=== PATIENT | male | born 1940 | race Caucasian/White ===

== ENCOUNTER 2018-01-02 12:01 | Inpatient (IN) | payer BC, MEDICARE ==
[~2018-01-02] VITALS: Ht 182.9 cm; Wt 86.2 kg
[2018-01-02] MEDS ORDERED: ALBUTEROL/IPRATROPIUM 3 ML NEB NEB ONE (13:15)
[2018-01-02 13:23] LABS: BASOPHILS % 0.3 % (0.0-1.0); EOSINOPHILS % 0.6 % (0.0-6.0); HEMATOCRIT 46.2 % (38.2-49.6); HEMOGLOBIN 15.7 g/dL (14.0-18.0); LYMPHOCYTES # (AUTO) 0.6 (1.0-3.2); MEAN CORPUSCULAR HEMOGLOBIN 30.9 pg (28-32); MEAN CORPUSCULAR VOLUME 90.9 fL (81-99); MONOCYTES # (AUTO) 0.5 (0.2-0.8); MONOCYTES % 8.3 % (4.4-11.3); NEUTROPHILS # (AUTO) 5.2 (2.1-6.9); NEUTROPHILS % 80.5 % (38.7-80.0); PLATELET COUNT 121 x10e3/uL (140-360); RED BLOOD COUNT 5.08 x10e6/uL (4.3-5.7); RED CELL DISTRIBUTION WIDTH 12.8 % (11.7-14.4)
[2018-01-02 13:40] LABS: ALANINE AMINOTRANSFERASE 25 IU/L (0-55); ALBUMIN 3.7 g/dL (3.5-5.0); ALKALINE PHOSPHATASE 49 IU/L (40-150); ANION GAP 12.6 mmol/L (8-16); BLOOD UREA NITROGEN 13 mg/dL (7-26); BUN/CREATININE RATIO 16 (6-25); CALCIUM 9.7 mg/dL (8.4-10.2); CARBON DIOXIDE 29 mmol/L (22-29); CHLORIDE 92 mmol/L (98-107); CREATINE KINASE 493 IU/L (30-200); CREATININE, SERUM 0.82 mg/dL (0.72-1.25); EST GLOMERULAR FILTRATION RATE > 60 ML/MIN (60-); GLUCOSE 96 mg/dL (74-118); MAGNESIUM 1.9 MG/DL (1.3-2.1); POTASSIUM 4.6 mmol/L (3.5-5.1); SODIUM 129 mmol/L (136-145)
--- NOTE | 2018-01-02 13:55 | Diagnostic Imaging Report ---
PROCEDURE: Frontal and lateral views of the chest. COMPARISON: None. INDICATIONS: UPPER RESPIRATORY INFECTION FINDINGS: Lines/tubes: None. Lungs: The lungs are well inflated. There are patchy opacities in both lungs, right greater than left. Pleura: There is no pleural effusion or pneumothorax. Heart and mediastinum: Mitral valve prosthesis. Borderline enlargement of cardiac silhouette. Bones: No acute bony abnormality. IMPRESSION: Findings concerning for multifocal pneumonia, worse in the right lung. Dictated by: Gianluca Lawton M.D. on 01/02/2018 at 13:56 Electronically approved by: Gianluca Lawton M.D. on 01/02/2018 at 13:56
[2018-01-02] MEDS ORDERED: METOPROLOL SUCC25 MG PO (15:08)
[2018-01-02] MEDS ORDERED: TAMSULOSIN HCL0.4 MG PO (15:08)
[2018-01-02] MEDS ORDERED: MIRALAX17 GM PO (15:08)
[2018-01-02] MEDS ORDERED: ALIGN4 MG PO (15:08)
[2018-01-02] MEDS ORDERED: OMEGA 3 1,0001 EACH PO (15:08)
[2018-01-02] MEDS ORDERED: PRADAXA150 MG PO (15:08)
[2018-01-02] MEDS ORDERED: VITAMIN D1000 UNI1 PO (15:08)
[2018-01-02] MEDS ORDERED: LEVOTHYROXINE50 MCG PO (15:08)
[2018-01-02] MEDS ORDERED: CEFTRIAXONE SOD 1 GM VIAL IV SCH (15:15)
[2018-01-02] MEDS: AZITHROMYCIN 250 MG TAB PO SCH (15:40)
--- OUTSIDE RECORDS SUMMARY | 2018-01-02 16:00 | XMS REPORT ---
Author Author [facility] Address Unknown Phone Unavailable Care Team Providers Care Utility Specialist Name Role Phone MARYA MARY Unavailable Unavailable Problems This patient has no known problems. Allergies, Adverse Reactions, Alerts This patient has no known allergies or adverse reactions. Medications This patient has no known medications. 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 COMPARISON: None. INDICATIONS: UPPER RESPIRATORY INFECTION FINDINGS: Lines/tubes: None. Lungs: The lungs are well inflated. There are patchy opacities in both lungs, right greater than left. Pleura: There is no pleural effusion or pneumothorax. Heart and mediastinum: Mitral valve prosthesis. Borderline enlargement of cardiac silhouette. Bones: No acute bony abnormality. IMPRESSION: Findings concerning for multifocal pneumonia, worse in the right lung. Dictated by: Gianluca Delgado M.D. on 01/02/2018 at 13:56 Electronically approved by: Gianluca Delgado M.D. on 01/02/2018 at 13:56 Dictated By: GIANLUCA DELGADO MD [id number] Transcribed By: ESTELLA on 01/02/18 1356 COPY TO: MJ BACA NP
--- OUTSIDE RECORDS SUMMARY | 2018-01-02 16:00 | XMS REPORT ---
Author Organization Unknown Address [address] [place] [address] Phone [phone] Care Team Providers Care Educational Specialist Name Role Phone CEFERINO MCCARTY MD 82 [phone] ESTEBAN MCMANUS MD 119 [phone] DIPAK LINDSEY MD 107 [phone] MARY PAUL MD 3 [phone] ALVIN CRUZ 111 [phone] destini goldberg (spouse) 64 [phone] Allergies Code Code System Name Reaction Severity Status Onset 1886 RxNorm Caffeine Active 2670 RxNorm Codeine Active 92030 RxNorm Verapamil Active Medications Name Status Start Date Stop Date amoxicillin 500 mg capsule Completed 08/16/2017 amoxicillin 500 mg tablet Completed 02/10/2017 azithromycin 250 mg tablet TAKE 2 TABLETS (500 MG) BY ORAL ROUTE ONCE DAILY FOR 1 DAY THEN 1 TABLET (250 MG) BY ORAL ROUTE ONCE DAILY FOR 4 DAYS Active Not available benzonatate 200 mg capsule Completed 08/27/2016 cephalexin 500 mg capsule Completed 08/27/2016 cholecalciferol (vitamin D3) 2,000 unit capsule Take 1 capsule every day by oral route. Active Not available digoxin 125 mcg tablet Completed 02/10/2017 digoxin 250 mcg tablet Completed 08/27/2016 fenofibric acid (choline) 135 mg capsule,delayed release Completed 2017 fluticasone 50 mcg/actuation nasal spray,suspension [place] 1 spray twice a day by intranasal route as directed for 14 days. Completed 11/01/2017 L-Thyroxine 1 TAB A DAY Completed 09/07/2016 levocetirizine 5 mg tablet Completed 08/27/2016 levofloxacin 500 mg tablet Completed 04/12/2017 Lovaza 1 gram capsule Active Not available methocarbamol 500 mg tablet Active Not available Miralax 17 gram oral powder packet Take 1 packet every day by oral route. Active Not available Pradaxa 150 mg capsule Active Not available Synthroid 50 mcg tablet Active Not available tamsulosin 0.4 mg capsule Active Not available Toprol XL 25 mg tablet,extended release Active Not available Viagra 100 mg tablet Take 0.5 tablets every day by oral route as needed for 6 days. Active Not available Notes: align probiotic supplement : QD Problems Name Status Onset Date Source Body Mass Index 25-29 - Overweight Active 08/27/2016 Hemorrhoids Active 08/27/2016 Constipation Active 08/27/2016 Abdominal Mass Active 08/27/2016 Atrial Fibrillation Active 12/20/2016 Atherosclerosis of Aorta Active 12/20/2016 Atypical Chest Pain Active 12/20/2016 Electrocardiogram Abnormal Active 12/20/2016 Hypothyroidism Active 12/31/2017 Hypertriglyceridemia Active 12/31/2017 Benign Prostatic Hyperplasia Active 12/31/2017 Procedures Date Name Performed by 04/11/2015 Colonoscopy Notes: repeat in 5 yrs per pt Information not available Nasal Surgery Procedure Notes: Repair Deviated Septum Information not available Tonsillectomy Information not available Revision of Lower Eyelid Notes: Bilaterally Information not available Revision of Upper Eyelid Notes: Bilaterally Information not available Cataract Surgery Complex Notes: Bilaterally Information not available 08/27/2016 US, Abdomen [facility] [address] [place] [address] (Work [address]) 12/20/2016 Electrocardiogram [facility] [address] [place] [phone] (Work Place) Notes: Excision Lipoma RLQ of Abd Excision Right Upper Arm Blood Tumor Mitral Valvuoplasty Lab Results Date Name Specimen Result Interpretation Description Value Range Status Address 04/01/2017 CMP, Serum or Plasma No observation recorded. [facility]: [address], [place] 12/17/2015 Lipid Panel, Serum No observation recorded. [facility] [address], [place] 01/28/2015 Lipid Panel, Serum No observation recorded. [facility] ([facility] [address], [place] Electrocardiogram Rate & Rhythm 69 [facility]: [address] [facility] QRS Duration 100 [facility]: [address] [facility] QT Interval 376 [facility]: [address] [facility] Past Encounters 12/30/2017 Upper Respiratory Infection; Atrial Fibrillation; Hypertriglyceridemia; Hypothyroidism; Atherosclerosis of Aorta Mary Diaz MD: [address] [place] [phone], Ph. 11/01/2017 Acute Low Back Pain; Body Mass Index 25-29 - Overweight; Atrial Fibrillation; Atherosclerosis of Aorta Mary Diaz MD: [address] [place] [phone], Ph. 08/16/2017 Upper Respiratory Infection Charles Moreno MD: [address] [place] [phone], Ph. [phone] 04/12/2017 Advance Directive Discussed with Patient; Body Mass Index 25-29 - Overweight; Constipation; Atrial Fibrillation; Hemorrhoids; Hypertriglyceridemia; Adult Health Examination Mary Paul MD: [address] [place] [phone], Ph. 02/10/2017 Acute Sinusitis; Acute Bronchitis Mary Paul MD: [address] [place] [phone], Ph. 12/20/2016 Acute Sinusitis; Atypical Chest Pain; Atherosclerosis of Aorta; Atrial Fibrillation; Electrocardiogram Abnormal Mary Paul MD: [address] [place] [phone], Ph. 09/07/2016 Constipation; Atherosclerosis of Aorta; Non-alcoholic Fatty Liver; Biliary Sludge; Body Mass Index 25-29 - Overweight Mary Paul MD: [address] [place] [phone], Ph. 08/27/2016 Constipation; Abdominal Mass; Hemorrhoids; Body Mass Index 25-29 - Overweight; Pneumococcal Vaccination Mary Paul MD: [address] [place] [phone], Ph. Social History Smoking Status Never Smoker Vaccine List Vaccine Type influenza, unspecified formulation 05/20/2016 05/20/2017 pneumococcal conjugate PCV 13 08/27/20160.5 mL pneumococcal polysaccharide PPV23 07/27/2013 Tdap 07/27/2013 zoster 09/19/2005 Plan of Care Patient Instructions It was good to see you in the office today for your Medicare Annual Wellness Visit. You have been provided some information on healthy nutrition, including a diet rich in fruits and vegetables, minimizing simple carbohydrates, salt, and saturated fats. I want to encourage regular cardiovascular exercise such as walking at least 30 minutes daily, 5 times per week. Please remember to schedule any preventive health measures that we talked about today. You have also been provided education on fall prevention and community- based lifestyle interventions to help reduce health risks and promote healthy living in your [employer] folder. Screening Recommendations 1. Vaccines Pneumococcal: No further need Influenza: This Fall Shingles: No further need Tetanus: Your next one in:2022 2. Prostate Screening: discussed today and information sent with patient in their [employer] health folder 3. Colorectal cancer Screening Colonoscopy: No screening necessary Fecal Occult Blood: discussed today and information sent with patient in their [employer] health folder 4. Bone Mass Measurement: discussed today 5. Eye Exam Screening: discussed today 6. Cholesterol Screening: discussed today. Followed by Cardiology. 7. Diabetes Screening: discussed today Reminders Provider Appointments None recorded. Lab None recorded. Referral None recorded. Procedures None recorded. Surgeries None recorded. Imaging None recorded. Vitals 12/30/2017 09:00AM Est Patient Height Weight BMI Blood Pressure 6 ft 0.6 in 196 lbs 26.1 kg/m2 122/84 mm[Hg] 11/01/2017 03:30PM Work In Same Day Height Weight BMI Blood Pressure 6 ft 0.6 in 196 lbs 26.1 kg/m2 118/80 mm[Hg] 08/16/2017 08:30AM Est Patient Height Weight BMI Blood Pressure 6 ft 0.6 in 191 lbs 25.5 kg/m2 110/72 mm[Hg] 04/12/2017 07:00AM AWV Height Weight BMI Blood Pressure 6 ft 0.6 in 190 lbs 25.3 kg/m2 116/70 mm[Hg] 02/10/2017 07:45AM Est Patient Height Weight BMI Blood Pressure 6 ft 0.6 in 190 lbs 25.3 kg/m2 118/78 mm[Hg] 12/20/2016 08:15AM Est Patient Height Weight BMI Blood Pressure 6 ft 0.6 in 186 lbs 24.8 kg/m2 101/71 mm[Hg] 09/07/2016 03:30PM Est Patient Height Weight BMI Blood Pressure 5 ft 11.5 in 192 lbs 26.4 kg/m2 103/69 mm[Hg] 08/27/2016 02:00PM Est Patient Height Weight BMI Blood Pressure 5 ft 11.5 in 192 lbs 26.4 kg/m2 119/83 mm[Hg]
[2018-01-02] MEDS ORDERED: ACETAMINOPHEN 325 MG TAB PO PRN (18:45)
[2018-01-02] MEDS ORDERED: ONDANSETRON HCL INJ 2 MG/ML VIAL IV PRN (18:45)
[2018-01-02 18:50] VITALS: BP 136/64
--- NOTE | 2018-01-02 19:09 | History and Physical ---
PRIMARY CARE PHYSICIAN: Dr. Cristo Talbot. CHIEF COMPLAINT: Shortness of breath, cough, wheezing, fever, chills for the last 2 to 3 days. HISTORY OF PRESENT ILLNESS: Mr. Barrera is a 77-year-old male who presented to the emergency room with cough, fever, chills going on for the last 4 to 5 days. He saw his primary care physician, Dr. Diaz, and she gave IV Rocephin and gave him a Z-Schuyler, but patient did not improve and the cough got worse, and since yesterday he was also coughing up a small amount of blood. The chest x-ray in the emergency room is showing bilateral alveolar infiltrate, worse in the right, consistent with multilobar pneumonia. He is denying any complaints of chest pain, nausea, vomiting, diarrhea. REVIEW OF SYSTEMS GENERAL: Fever and chills. HEAD: Denies any head trauma. ENT: Denies any earache. CVS: Denies any chest pain. RESPIRATORY: Shortness of breath and wheezing. GI: Denies any nausea or vomiting. MUSCULOSKELETAL: Denies any arthralgias, myalgias. NEURO: Denies any focal weakness. REMAINDER: The rest of the review of systems are negative except as in the HPI. PAST MEDICAL HISTORY 1. Mitral valve repair. 2. Cataract repair. 3. Hernia surgery. FAMILY AND SOCIAL HISTORY: He lives with his . Does not smoke, does not drink. PHYSICAL EXAMINATION VITAL SIGNS: Temperature 98.4, pulse of 74, blood pressure 125/94, O2 sat 96% on room air. SKIN: Warm and dry. HEENT: Head atraumatic, normocephalic. Pupils are reactive. NECK: Supple. CHEST: Wheezing and rhonchi bilaterally. HEART: S1/S2 audible. No murmurs, gallops or rub. ABDOMEN: Soft, nontender, nondistended. EXTREMITIES: No clubbing, cyanosis or edema. NEUROLOGICALLY: Awake and alert, following commands, no focal neurologic deficit. LABS: White count of 6000, hemoglobin 15.7, platelets 121. Chemistry: Sodium 129, potassium 4.6, chloride 92, BUN 13, creatinine 0.82. CK-MB 5.4, , troponin negative. BNP 147. Total bilirubin 1.3, and AST is 35. CHEST X-RAY: Multilobar pneumonia. ASSESSMENT: Mr. Barrera is a 77-year-old male with shortness of breath and wheezing and cough. Chest x-ray suggestive of multilobar pneumonia. PLAN 1. I will do a CT chest without contrast. 2. Start on IV Zosyn along with azithromycin as patient did not respond to Rocephin. 3. Nebulizer treatment. 4. Pulmicort nebs. 5. Will repeat labs. Patient's CK-MB is high, likely pneumonia. 6. Sputum culture and influenza antigen will be sent as well. Discussed with patient's at bedside in detail. Job#: [id number] EV
[2018-01-02 19:44] VITALS: BP 136/64
[2018-01-02 20:00] VITALS: BP 136/64
[2018-01-02] MEDS: ALBUTEROL/IPRATROPIUM 3 ML NEB NEB SCH (20:29)
[2018-01-02] MEDS: BUDESONIDE 0.5MG/2 ML NEB INH SCH (20:29)
--- NOTE | 2018-01-02 20:48 | Diagnostic Imaging Report ---
EXAM: CT Chest WITHOUT contrast 01/02/2018 6:43 PM INDICATION: Pneumonia, cough COMPARISON: None TECHNIQUE: Chest was scanned utilizing a multidetector helical scanner from the lung apex through the level of the adrenal glands without IV contrast. Coronal and sagittal reformations were obtained. Routine protocol was performed. IV CONTRAST: None RADIATION DOSE: Total DLP: 525.50 mGy*cm Estimated effective dose: (DLP x 0.014 x size factor) mSv COMPLICATIONS: None FINDINGS: LINES/ TUBES: None. LUNGS AND AIRWAYS: There are multifocal, predominantly centrilobular nodular and groundglass opacities. The right lower lobe is the worst affected, but there is also involvement of the upper lobes and left lower lobe superior segment. Diffuse bronchial wall thickening, consistent with acute infectious process. PLEURA: Very small right pleural effusion. No pneumothorax. HEART AND MEDIASTINUM:No mediastinal, hilar or axillary lymphadenopathy. The heart is normal in size. No pericardial effusion. There is a mitral valve prosthesis. The visualized thyroid gland is normal. UPPER ABDOMEN: Small hiatal hernia. BONES: Multilevel thoracic spondylosis. SOFT TISSUES: Unremarkable. IMPRESSION: 1. Multifocal pneumonia as described above, predominantly involving the upper lobes. 2. Recommend serial radiographs to document resolution. Signed by: Dr. Robert Nunez M.D. on 01/02/2018 8:44 PM
[2018-01-02] MEDS: PIPER-TAZ 3.375 GM 50 ML IV SCH ×2 (21:21→22:00)
[2018-01-02] MEDS ORDERED: SODIUM CHLORIDE 0.9% 250ML 250 ML ONE (21:28)
[2018-01-03] VITALS (8 sets, daily range): BP systolic 90–131; BP diastolic 55–80
[2018-01-03] MEDS: ALBUTEROL/IPRATROPIUM 3 ML NEB NEB SCH ×3 (02:36→18:45)
[2018-01-03] MEDS: PIPER-TAZ 3.375 GM 50 ML IV SCH ×3 (05:06→21:21)
[2018-01-03 07:08] LABS: BASOPHILS % 0.2 % (0.0-1.0); EOSINOPHILS # (AUTO) 0.1 (0.0-0.4); EOSINOPHILS % 1.6 % (0.0-6.0); HEMATOCRIT 36.9 % (38.2-49.6); LYMPHOCYTES # (AUTO) 0.7 (1.0-3.2); LYMPHOCYTES % 15.9 % (18.0-39.1); MEAN CORPUSCULAR HEMOGLOBIN 30.9 pg (28-32); MEAN CORPUSCULAR HGB CONC 34.1 g/dL (31-35); MEAN CORPUSCULAR VOLUME 90.4 fL (81-99); MONOCYTES # (AUTO) 0.5 (0.2-0.8); MONOCYTES % 11.4 % (4.4-11.3); NEUTROPHILS % 70.4 % (38.7-80.0); PLATELET COUNT 100 x10e3/uL (140-360); RED BLOOD COUNT 4.08 x10e6/uL (4.3-5.7); RED CELL DISTRIBUTION WIDTH 13.1 % (11.7-14.4)
[2018-01-03 07:18] LABS: ANION GAP 11.5 mmol/L (8-16); BLOOD UREA NITROGEN 12 mg/dL (7-26); BUN/CREATININE RATIO 15 (6-25); CALCIUM 8.6 mg/dL (8.4-10.2); CARBON DIOXIDE 29 mmol/L (22-29); CHLORIDE 95 mmol/L (98-107); CREATININE, SERUM 0.82 mg/dL (0.72-1.25); EST GLOMERULAR FILTRATION RATE > 60 ML/MIN (60-); GLUCOSE 87 mg/dL (74-118); POTASSIUM 4.5 mmol/L (3.5-5.1); SODIUM 131 mmol/L (136-145)
[2018-01-03 07:27] LABS: HEMOGLOBIN 12.6 g/dL (14.0-18.0)
[2018-01-03 07:38] LABS: CREATINE KINASE MB 2.5 ng/mL (0-5.0)
[2018-01-03 10:21] LABS: PLATELET ESTIMATE SLIGHTLY DECREASED
[2018-01-03 10:22] LABS: PLATELET MORPHOLOGY COMMENT FEW LARGE; POIKILOCYTOSIS SLIGHT; RBC MORPHOLOGY COMMENT NORMAL
[2018-01-03] MEDS: AZITHROMYCIN 250 MG TAB PO SCH (14:20)
[2018-01-03] MEDS: BUDESONIDE 0.5MG/2 ML NEB INH SCH (18:45)
[2018-01-04] VITALS (7 sets, daily range): BP systolic 117–171; BP diastolic 62–91
[2018-01-04] MEDS: ALBUTEROL/IPRATROPIUM 3 ML NEB NEB SCH ×4 (00:05→20:25)
[2018-01-04] MEDS: LEVOTHYROXINE SODIUM 50 MCG TAB PO SCH (05:27)
[2018-01-04] MEDS: PIPER-TAZ 3.375 GM 50 ML IV SCH ×3 (05:27→21:56)
[2018-01-04] MEDS: BUDESONIDE 0.5MG/2 ML NEB INH SCH ×2 (07:45→20:25)
[2018-01-04] MEDS: POLYETHYLENE GLYCOL 3350 17 GM PACK PO SCH (09:00)
[2018-01-04] MEDS: ALIGN PO SCH (09:00)
[2018-01-04] MEDS ORDERED: DABIGATRAN ETEXILATE 150 MG CAP PO SCH (09:00)
[2018-01-04] MEDS ORDERED: TAMSULOSIN HCL 0.4 MG CAP PO SCH (09:00)
[2018-01-04] MEDS ORDERED: METOPROLOL SUCCINATE 25 MG TAB XL PO SCH ×2 (09:00→21:00)
[2018-01-04] MEDS ORDERED: CHOLECALCIFEROL 1,000 UNIT TAB PO SCH (09:00)
[2018-01-04] MEDS ORDERED: BIFIDOBACTERIUM INFANTIS 4 MG PO SCH (09:00)
[2018-01-04] MEDS: OMEGA 3 POLYUNSAT FATTY ACIDS 1000 MG SOFTGEL PO SCH (09:58)
[2018-01-04] MEDS: METOPROLOL SUCCINATE 25 MG TAB XL PO SCH ×2 (10:55→17:15)
--- NOTE | 2018-01-04 11:11 | Consultation ---
DATE OF CONSULTATION: January 04, 2018 CARDIOLOGY CONSULTATION Thank you so much for asking me to see this nice man in consultation. Mr. 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 CHIEF COMPLAINT: He was admitted on January 02, 2018, with the complaint of cough, fever and sputum production that was not improved with oral medications and other medications provided by the family doctor, Dr. Bauman. PAST MEDICAL HISTORY: Most significant for previous mitral valve repair by Dr. Cm Trejo in 1999 with surgical restructuring of his own valve. His regular breaker hand is Dr. Santoyo. He admits he does know of atrial fibrillation, but has not known of any other arrhythmia and has not ever had syncope. He had also previous bilateral inguinal hernia repairs, cataract surgeries and will lid lifts. He has had benign tumors removed from his skin twice. PERSONAL/SOCIAL HISTORY: He is a nonsmoker. HOME MEDICATIONS 1. Metoprolol succinate 25 mg daily. 2. Lovaza fish oil daily. 3. Tamsulosin 0.4 mg daily. 4. Levothyroxine 50 mcg daily. 5. Vitamin D. 6. Pradaxa 150 mg twice a day. REVIEW OF SYSTEMS CARDIAC: He denies feeling any palpitations. No edema. He does tell me that after his mitral valve repair he had to have his sternal wires removed for problems with infection. PHYSICAL EXAMINATION GENERAL: Shows a pleasant white man who is alert, oriented and sitting in a chair. VITALS: Blood pressure is 170/90 and pulse is 80 and irregularly irregular. HEENT: Unremarkable. NECK: No jugular venous distention. No bruits. THORAX: A healed sternotomy. HEART: S1 and S2 are equal, but irregularly irregular. This no significant murmur audible. LUNGS: Have faint crackles bilaterally. ABDOMEN: Protuberant. Normal bowel sounds. EXTREMITIES: No cyanosis, clubbing or edema. EKG on the chart shows atrial fibrillation. Telemetry strips show episodes of wide complex tachycardia in addition to the atrial fib that may be ventricular tachycardia or could be aberrant conduction. Pertinent chemistries show a normal troponin is and CK and CK-MB ratio is normal. His initial sodium was 129 and repeat 131. Potassium is normal at 4.5. No magnesium on the chart. His last white cell count was 4.29 and platelets 100,000. Chest x-ray suggests bilateral multilobar infiltrates suggesting pneumonia. ASSESSMENT 1. Pneumonia. 2. Chronic atrial fibrillation. 3. Previous mitral valve repair. 4. Wide complex tachycardia that may be ventricular tachycardia or aberrant conduction. 5. Hyponatremia. PLAN: Recommend we stop Zithromax as it can be proarrhythmic. Will increase his metoprolol despite him telling me he does not have hypertension. His blood pressure was elevated today, and it can help suppress these rhythms. Will check echocardiogram to assess left ventricular function and mitral valve function as his BNP is 147. Will follow him closely with you. Thank you for asking me to see him in consultation. Job#: [id number] GERALDINE
[2018-01-04 12:11] LABS: BASOPHILS % 0.2 % (0.0-1.0); EOSINOPHILS # (AUTO) 0.1 (0.0-0.4); EOSINOPHILS % 1.8 % (0.0-6.0); HEMATOCRIT 37.7 % (38.2-49.6); HEMOGLOBIN 12.8 g/dL (14.0-18.0); LYMPHOCYTES # (AUTO) 0.6 (1.0-3.2); LYMPHOCYTES % 12.6 % (18.0-39.1); MEAN CORPUSCULAR HEMOGLOBIN 30.7 pg (28-32); MEAN CORPUSCULAR VOLUME 90.4 fL (81-99); MONOCYTES # (AUTO) 0.4 (0.2-0.8); MONOCYTES % 9.7 % (4.4-11.3); NEUTROPHILS # (AUTO) 3.3 (2.1-6.9); NEUTROPHILS % 75.5 % (38.7-80.0); PLATELET COUNT 103 x10e3/uL (140-360); RED BLOOD COUNT 4.17 x10e6/uL (4.3-5.7); RED CELL DISTRIBUTION WIDTH 12.9 % (11.7-14.4)
[2018-01-04 12:32] LABS: ALANINE AMINOTRANSFERASE 17 IU/L (0-55); ALBUMIN 2.9 g/dL (3.5-5.0); ALKALINE PHOSPHATASE 41 IU/L (40-150); ANION GAP 10.6 mmol/L (8-16); BLOOD UREA NITROGEN 9 mg/dL (7-26); BUN/CREATININE RATIO 12 (6-25); CALCIUM 8.9 mg/dL (8.4-10.2); CARBON DIOXIDE 30 mmol/L (22-29); CHLORIDE 94 mmol/L (98-107); CREATININE, SERUM 0.77 mg/dL (0.72-1.25); EST GLOMERULAR FILTRATION RATE > 60 ML/MIN (60-); GLUCOSE 82 mg/dL (74-118); MAGNESIUM 1.7 MG/DL (1.3-2.1); POTASSIUM 4.6 mmol/L (3.5-5.1); SODIUM 130 mmol/L (136-145)
[2018-01-04 12:53] LABS: FREE T4 (FREE THYROXINE) 1.21 ng/dL (0.9-1.8)
[2018-01-04] MEDS: TAMSULOSIN HCL 0.4 MG CAP PO SCH (21:19)
[2018-01-04] MEDS: DABIGATRAN ETEXILATE 150 MG CAP PO SCH (21:19)
[2018-01-04] MEDS: CHOLECALCIFEROL 1,000 UNIT TAB PO SCH (21:20)
[2018-01-05] VITALS (9 sets, daily range): BP systolic 104–147; BP diastolic 63–88
[2018-01-05] MEDS: ALBUTEROL/IPRATROPIUM 3 ML NEB NEB SCH ×4 (01:35→20:35)
[2018-01-05] MEDS: LEVOTHYROXINE SODIUM 50 MCG TAB PO SCH (06:25)
[2018-01-05] MEDS: PIPER-TAZ 3.375 GM 50 ML IV SCH ×3 (06:25→20:38)
[2018-01-05 07:10] LABS: BASOPHILS % 0.2 % (0.0-1.0); EOSINOPHILS # (AUTO) 0.2 (0.0-0.4); EOSINOPHILS % 3.8 % (0.0-6.0); HEMATOCRIT 37.8 % (38.2-49.6); HEMOGLOBIN 12.8 g/dL (14.0-18.0); LYMPHOCYTES # (AUTO) 0.9 (1.0-3.2); LYMPHOCYTES % 19.3 % (18.0-39.1); MEAN CORPUSCULAR HEMOGLOBIN 30.6 pg (28-32); MEAN CORPUSCULAR HGB CONC 33.9 g/dL (31-35); MEAN CORPUSCULAR VOLUME 90.4 fL (81-99); MONOCYTES # (AUTO) 0.4 (0.2-0.8); MONOCYTES % 9.4 % (4.4-11.3); NEUTROPHILS % 66.9 % (38.7-80.0); PLATELET COUNT 116 x10e3/uL (140-360); RED BLOOD COUNT 4.18 x10e6/uL (4.3-5.7); RED CELL DISTRIBUTION WIDTH 12.9 % (11.7-14.4)
[2018-01-05] MEDS: BUDESONIDE 0.5MG/2 ML NEB INH SCH ×2 (07:15→20:35)
[2018-01-05 07:30] LABS: ANION GAP 11.4 mmol/L (8-16); BLOOD UREA NITROGEN 10 mg/dL (7-26); BUN/CREATININE RATIO 14 (6-25); CALCIUM 8.9 mg/dL (8.4-10.2); CARBON DIOXIDE 27 mmol/L (22-29); CHLORIDE 97 mmol/L (98-107); CREATININE, SERUM 0.72 mg/dL (0.72-1.25); EST GLOMERULAR FILTRATION RATE > 60 ML/MIN (60-); GLUCOSE 85 mg/dL (74-118); POTASSIUM 4.4 mmol/L (3.5-5.1); SODIUM 131 mmol/L (136-145)
[2018-01-05] MEDS: METOPROLOL SUCCINATE 25 MG TAB XL PO SCH ×2 (08:10→16:50)
[2018-01-05] MEDS: OMEGA 3 POLYUNSAT FATTY ACIDS 1000 MG SOFTGEL PO SCH (08:10)
[2018-01-05] MEDS: DABIGATRAN ETEXILATE 150 MG CAP PO SCH ×2 (08:10→16:50)
[2018-01-05] MEDS: ALIGN PO SCH (09:00)
[2018-01-05] MEDS: POLYETHYLENE GLYCOL 3350 17 GM PACK PO SCH (09:00)
[2018-01-05] MEDS ORDERED: ONDANSETRON HCL 4 MG ORAL DISINTEGRATING TAB PO PRN (12:15)
[2018-01-05] MEDS: TAMSULOSIN HCL 0.4 MG CAP PO SCH (20:38)
[2018-01-05] MEDS: CHOLECALCIFEROL 1,000 UNIT TAB PO SCH (20:38)
[2018-01-06] VITALS: BP 134/74
[2018-01-06] MEDS: ALBUTEROL/IPRATROPIUM 3 ML NEB NEB SCH ×2 (01:45→06:57)
[2018-01-06 04:00] VITALS: BP 124/70
[2018-01-06] MEDS: PIPER-TAZ 3.375 GM 50 ML IV SCH (06:15)
[2018-01-06] MEDS: LEVOTHYROXINE SODIUM 50 MCG TAB PO SCH (06:15)
[2018-01-06] MEDS: BUDESONIDE 0.5MG/2 ML NEB INH SCH (07:00)
[2018-01-06 07:10] VITALS: BP 133/68
[2018-01-06 07:37] VITALS: BP 133/68
[2018-01-06] MEDS: METOPROLOL SUCCINATE 25 MG TAB XL PO SCH (09:00)
[2018-01-06] MEDS: DABIGATRAN ETEXILATE 150 MG CAP PO SCH (09:00)
[2018-01-06] MEDS: OMEGA 3 POLYUNSAT FATTY ACIDS 1000 MG SOFTGEL PO SCH (09:00)
[2018-01-06] MEDS: POLYETHYLENE GLYCOL 3350 17 GM PACK PO SCH (09:00)
[2018-01-06] MEDS: ALIGN PO SCH (09:00)
[2018-01-06] MEDS ORDERED: AUGMENTIN 875-1 EACH PO (10:37)
[2018-01-06 11:29] VITALS: BP 127/62
[2018-01-06] MEDS ORDERED: AUGMENTIN 500-1 EACH PO (11:34)
--- NOTE | 2018-01-06 13:24 | Discharge Summary ---
Patient of Dr. Black, Dr. Simons. Suzette 77-year-old gentleman admitted with cough and fever, found to have bilateral multifocal pneumonia. He had been treated with Zithromax and Rocephin. He has a history of mitral valve repair, cataract surgery, hernia surgery. He is chronically anticoagulated. He was treated with Zosyn and gradually improved. He was seen by Dr. Simons because of what appeared to be atrial fibrillation with aberrancy, history of mitral valve repair in 1999 with reconstruction, history of BPH and hypothyroidism. He is chronically anticoagulated with Pradaxa. Zithromax was acting as a proarrhythmic agent and was responsible for his arrhythmia. It was uncertain whether this was ventricular tachycardia or atrial tachycardia with aberrancy and atrial fibrillation with aberrancy. He was warned to avoid macrolides, specifically azithromycin, Biaxin and erythromycin. He improved and was discharged to be followed by Dr. Simons and Dr. Bauman and Dr. Guillaume. Continue on Augmentin 500 mg b.i.d., metoprolol 25 mg b.i.d., Robitussin 10 mL t.i.d. p.r.n. cough, Pradaxa 150 mg b.i.d., tamsulosin 0.5 mg nightly, vitamin D, Levoxyl 50 mcg daily. RADHA GAITAN MD Job#: [id number]
== END 2018-01-06 12:23 | disposition home or self-care (01) | DRG 194 ==
LOC: ER 12:01 → ERHOLD 15:57 → MED/SURG3 17:49
PROVIDERS: ADMIT Internal Medicine; ATTEND Internal Medicine
DX: J18.9 Pneumonia, unspecified organism (principal); R04.2 Hemoptysis; I47.2 Ventricular tachycardia; E87.1 Hypo-osmolality and hyponatremia; I48.2 Chronic atrial fibrillation; N40.0 Benign prostatic hyperplasia without lower urinary tract symptoms; E03.9 Hypothyroidism, unspecified; I49.3 Ventricular premature depolarization; Z79.02 Long term (current) use of antithrombotics/antiplatelets
CPT/HCPCS: 36415; 71046; 71250; 80048; 80053; 82550; 82553; 83735; 83880; 84439; 84443; 84484; 85025; 87040; 87070; 87205; 87400; 93005; 93306; 94640; 99284; J0696; J2543; J7050

== ENCOUNTER 2019-01-12 06:54 | Outpatient (RCR) | payer BC, MEDICARE ==
[~2019-01-12 06:54] MED LIST: ALIGN4 MG PO; AUGMENTIN 500-1 EACH PO; AUGMENTIN 875-1 EACH PO; LEVOTHYROXINE50 MCG PO; METOPROLOL SUCC25 MG PO; MIRALAX17 GM PO; OMEGA 3 1,0001 EACH PO; PRADAXA150 MG PO; TAMSULOSIN HCL0.4 MG PO; VITAMIN D1000 UNI1 PO
== END 2019-01-16 ==
LOC: PT 06:54
PROVIDERS: ATTEND Internal Medicine
DX: S13.4XXD Sprain of ligaments of cervical spine, subsequent encounter (principal); M62.830 Muscle spasm of back; M53.82 Other specified dorsopathies, cervical region; M62.81 Muscle weakness (generalized)
CPT/HCPCS: 97139

== ENCOUNTER 2019-01-19 07:29 | Outpatient (RCR) | payer BC, MEDICARE ==
[2019-01-21] MEDS ORDERED: ELIQUIS PO (17:57)
[2019-01-25] MEDS ORDERED: LEVOFLOXACIN500 MG PO (13:01)
[2019-01-25] MEDS ORDERED: MUCINEX DM ER1 EACH PO (13:01)
[2019-01-25] MEDS ORDERED: PROAIR HFA INH8.5 GM IH (13:01)
== END 2019-02-16 ==
LOC: PT 07:29
PROVIDERS: ATTEND Internal Medicine
DX: S13.4XXD Sprain of ligaments of cervical spine, subsequent encounter (principal); M62.830 Muscle spasm of back; M62.81 Muscle weakness (generalized); M53.82 Other specified dorsopathies, cervical region

== ENCOUNTER 2019-01-21 12:29 | Inpatient (IN) | payer BC, MEDICARE ==
[~2019-01-21] VITALS: Ht 182.9 cm; Wt 92.3 kg
--- OUTSIDE RECORDS SUMMARY | 2019-01-21 12:31 | XMS REPORT ---
Author Organization Unknown Address [address] [place] [address] Phone [phone] Care Team Providers Care Bid Clerk Name Role Phone CEFERINO MCCARTY MD 82 [phone] ESTEBAN MCMANUS MD 119 [phone] DIPAK LINDSEY MD 107 [phone] MARY PAUL MD 3 [phone] ALVIN CRUZ 111 [phone] destini goldberg (spouse) 62 [phone] Allergies Code Code System Name Reaction Severity Status Onset 1886 RxNorm Caffeine Active 2670 RxNorm Codeine Active 72912 RxNorm Verapamil Active Medications Name Status Start [...] acid (choline) 135 mg capsule,delayed release Completed 11/01/2017 fluticasone 50 mcg/actuation nasal spray,suspension [place] 1 spray twice a day by intranasal [...] Bilaterally Information not available 08/27/2016 US, Abdomen [facility] [address] [place] [address] (Work [address]) 12/20/2016 Electrocardiogram [facility] [address] [place] [phone] (Work Place) Notes: Excision Lipoma RLQ of Abd Excision Right Upper Arm Blood Tumor Mitral Valvuoplasty Lab Results Date Name Specimen Result Interpretation Description Value Range Status Address 04/01/2017 CMP, Serum or Plasma No observation recorded. [facility] [facility]: [address], [place] 12/17/2015 Lipid Panel, Serum No observation recorded. [facility] [address], [place] 01/28/2015 Lipid Panel, Serum No observation recorded. [facility] [address], [place] Electrocardiogram Rate & Rhythm 69 [facility]: [address] [facility] QRS Duration 100 [facility]: [address] [facility] QT Interval 376 [facility]: [address] [facility] Past Encounters 12/30/2017 Upper Respiratory Infection; Atrial Fibrillation; Hypertriglyceridemia; Hypothyroidism; Atherosclerosis of Aorta Mary Diaz MD: [address] [place] [phone], Ph. 11/01/2017 Acute Low Back Pain; Body Mass Index 25-29 - Overweight; Atrial Fibrillation; Atherosclerosis of Aorta Mary Diaz MD: [address] [place] [phone], Ph. 08/16/2017 Upper Respiratory Infection Charles Moreno MD: [address] [place] [phone], Ph. 04/12/2017 Advance Directive Discussed with Patient; Body Mass Index 25-29 - Overweight; Constipation; Atrial Fibrillation; Hemorrhoids; Hypertriglyceridemia; Adult Health Examination Mary Paul MD: [address] [place] [phone], Ph. 02/10/2017 Acute Sinusitis; Acute Bronchitis Mary Paul MD: [address] [place] [phone], Ph. 12/20/2016 Acute Sinusitis; Atypical Chest Pain; Atherosclerosis of Aorta; Atrial Fibrillation; Electrocardiogram Abnormal Mary Paul MD: [address] [place] [phone], Ph. 09/07/2016 Constipation; Atherosclerosis of Aorta; Non-alcoholic Fatty Liver; Biliary Sludge; Body Mass Index 25-29 - Overweight Mary Paul MD: [address] [place] [phone], Ph. 08/27/2016 Constipation; Abdominal Mass; Hemorrhoids; Body Mass Index 25-29 - Overweight; Pneumococcal Vaccination Mary Paul MD: [address] [place] [phone], Ph. Social History Smoking Status Never Smoker [...] risks and promote healthy living in your [employer] folder. Screening Recommendations 1. Vaccines Pneumococcal: No further need Influenza: This Fall Shingles: No further need Tetanus: Your next one in:2022 2. Prostate Screening: discussed today and information sent with patient in their [employer] health folder 3. Colorectal cancer Screening Colonoscopy: No screening necessary Fecal Occult Blood: discussed today and information sent with patient in their [employer] health folder 4. Bone Mass Measurement: discussed [...]
[2019-01-21] MEDS ORDERED: SODIUM CHLORIDE 0.9% 1000ML 1,000 ML IV STA ×2 (12:41→13:36)
[2019-01-21] MEDS ORDERED: AZITHROMYCIN 500MG/NS 250 ML 250 ML IV SCH (12:45)
[2019-01-21 13:13] LABS: BASOPHILS % 0.2 % (0.0-1.0); EOSINOPHILS % 0.3 % (0.0-6.0); HEMATOCRIT 46.9 % (38.2-49.6); HEMOGLOBIN 15.9 g/dL (14.0-18.0); LYMPHOCYTES # (AUTO) 0.5 (1.0-3.2); LYMPHOCYTES % 3.4 % (18.0-39.1); MEAN CORPUSCULAR HEMOGLOBIN 31.5 pg (28-32); MEAN CORPUSCULAR HGB CONC 33.9 g/dL (31-35); MEAN CORPUSCULAR VOLUME 92.9 fL (81-99); MONOCYTES # (AUTO) 0.6 (0.2-0.8); MONOCYTES % 4.6 % (4.4-11.3); NEUTROPHILS # (AUTO) 12.7 (2.1-6.9); NEUTROPHILS % 91.1 % (38.7-80.0); PLATELET COUNT 132 x10e3/uL (140-360); RED BLOOD COUNT 5.05 x10e6/uL (4.3-5.7)
[2019-01-21 13:20] LABS: CLARITY,URINE HAZY (CLEAR); COLOR,URINE YELLOW (YELLOW); KETONES,URINE NEGATIVE (NEGATIVE); LEUKOCYTE ESTERASE ,URINE NEGATIVE (NEGATIVE); NITRITE,URINE NEGATIVE (NEGATIVE); PROTEIN,URINE DIPSTICK NEGATIVE (NEGATIVE); URINE UROBILINOGEN 0.2 mg/dL (0.2 - 1)
[2019-01-21 13:20] LABS: INR 0.96; PROTHROMBIN TIME 13.3 seconds (11.9-14.5)
[2019-01-21 13:21] LABS: PARTIAL THROMBOPLASTIN TIME 42.7 seconds (23.8-35.5)
[2019-01-21 13:21] LABS: BACTERIA,URINE MODERATE /HPF; BILIRUBIN,URINE NEGATIVE (NEGATIVE); EPITHELIAL CELLS,URINE FEW /LPF; WBC,URINE (MAN) 0-5 /HPF (0-5)
[2019-01-21 13:32] LABS: ALANINE AMINOTRANSFERASE 29 IU/L (0-55); ALBUMIN/GLOBULIN RATIO 1.3 (0.8-2.0); ALKALINE PHOSPHATASE 62 IU/L (40-150); ANION GAP 14.4 mmol/L (8-16); BLOOD UREA NITROGEN 14 mg/dL (7-26); BUN/CREATININE RATIO 16 (6-25); CARBON DIOXIDE 27 mmol/L (22-29); CHLORIDE 99 mmol/L (98-107); CREATINE KINASE 168 IU/L (30-200); CREATININE, SERUM 0.87 mg/dL (0.72-1.25); EST GLOMERULAR FILTRATION RATE > 60 ML/MIN (60-); GLUCOSE 134 mg/dL (74-118); MAGNESIUM 1.8 MG/DL (1.3-2.1); POTASSIUM 4.4 mmol/L (3.5-5.1); SODIUM 136 mmol/L (136-145)
--- NOTE | 2019-01-21 13:42 | Diagnostic Imaging Report ---
EXAMINATION: PA and lateral views of the chest. COMPARISON: CT chest 01/02/2018 CLINICAL HISTORY: Cough, congestion and fever for 2 days, history of pneumonia DISCUSSION: Lines/tubes: None. Lungs: The lungs are well inflated. Linear opacities projecting in the region of the left costophrenic sulcus on the frontal view likely represents subsegmental atelectasis. There is patchy airspace opacity in the right infrahilar region, predominantly seen in the lateral view. There is no evidence of pulmonary edema. Pleura: There is no pleural effusion or pneumothorax. Heart and mediastinum: Cardiac silhouette is unremarkable. Pulmonary vasculature is normal. Bones and soft tissues: No acute bony abnormalities. Mild degenerative changes in the thoracic spine IMPRESSION: Findings in the right infrahilar region suggestive of pneumonia, in the appropriate clinical setting. Signed by: Dr. Slava Kevin M.D. on 01/21/2019 1:39 PM
[2019-01-21] MEDS: CEFTRIAXONE SOD 1 GM/NS 50 ML 50 ML IV SCH (13:47)
[2019-01-21] MEDS: LEVOFLOXACIN 500MG/D5W 100ML 100 ML IV SCH (14:57)
[2019-01-21] MEDS: SODIUM CHLORIDE 0.9% 1000ML 1,000 ML IV SCH (14:57)
[2019-01-21] MEDS ORDERED: ACETAMINOPHEN 325 MG TAB PO PRN (15:15)
[2019-01-21] MEDS: IPRATROPIUM BROMIDE 0.02% 2.5 ML NEB NEB SCH ×3 (15:20→23:45)
[2019-01-21] MEDS: ALBUTEROL SULF 0.083% NEB SOLN 3 ML NEB NEB SCH ×3 (15:20→23:45)
[2019-01-21 16:08] VITALS: BP 106/62
[2019-01-21 16:09] VITALS: BP 106/62
--- NOTE | 2019-01-21 16:20 | NUR ---
PT ADMITTED BY CHARGE NURSE. REC'D PT IN SEMI-FOWLERS POSITION. PT ON RA WITH NO S/S OF DISTRESS. PLACED ON SEMI-FOWLERS POSITION, SIDE RAILS UP X2, BED IN LOWEST POSITION, AND CALL COHN WITHIN REACH. PT HAVE COUGH.
[2019-01-21 16:55] VITALS: BP 106/62
[2019-01-21] MEDS ORDERED: ELIQUIS PO (17:57)
--- NOTE | 2019-01-21 18:55 | NUR ---
PT RECEIVING BREATHING TX. NO S/S OF DISTRESS. AT BEDSIDE. CALL COHN WITHIN REACH, SIDE RAILS UP X2, AND BED IN LOWEST POSITION.
--- NOTE | 2019-01-21 19:29 | NUR ---
Received change of shift report from AM nurse. Walking rounds completed.
[2019-01-21 20:00] VITALS: BP 96/51
--- NOTE | 2019-01-21 23:40 | NUR ---
Patient resting quitly at this time. Continue monitor.
[2019-01-22] VITALS (8 sets, daily range): BP systolic 89–112; BP diastolic 56–67
[2019-01-22] MEDS: SODIUM CHLORIDE 0.9% 1000ML 1,000 ML IV SCH ×2 (03:35→22:00)
[2019-01-22] MEDS: ALBUTEROL SULF 0.083% NEB SOLN 3 ML NEB NEB SCH ×5 (04:00→19:25)
[2019-01-22 06:26] LABS: CREATINE KINASE 153 IU/L (30-200)
[2019-01-22] MEDS: IPRATROPIUM BROMIDE 0.02% 2.5 ML NEB NEB SCH ×3 (06:45→19:25)
--- NOTE | 2019-01-22 07:30 | NUR ---
PT UP IN BED ,O2 2LNC IN PLACE,SHABANA MCARTHUR.
[2019-01-22] MEDS: LEVOFLOXACIN 500MG/D5W 100ML 100 ML IV SCH (09:00)
--- NOTE | 2019-01-22 10:18 | NUR ---
SPOKE WITH DR HINOJOSA NO NEW ORDERS
[2019-01-22] MEDS: CEFTRIAXONE SOD 1 GM/NS 50 ML 50 ML IV SCH (12:45)
--- NOTE | 2019-01-22 14:52 | NUR ---
Nutrition Screen Note RD Recommendation for Physician: -Continue current diet. Plan of Care: RD following, monitoring for tolerance and adequacy Nutrition reason for involvement: Nutrition Risk Trigger-MST 2 Primary Diagnose(s): PNA PMH: Hypertension A-Fib Hypothyroidism CAD Ht: 72 in Wt: 199 lb BMI: 26 kg/m2 IBW: [address] Assessment: (01/22) 78 YOM admitted for PNA. Pt stated that his intake has been decreased for the past couple of days d/t PNA. Pt denied any weight loss. Pt stated he was able to tolerate breakfast today, 01/22. Pt denied N/V/chewing or swallowing issues. Pt has chronic constipation and stated he is on a stool softener at home. LBM: 01/22. Pt had no other questions or concerns. Chart reviewed. Labs and meds reviewed. Will continue to monitor. Current Diet: cardiac Malnutrition Evaluation (01/22) The patient does not meet criteria for a specified degree of malnutrition at this time. Will re-evaluate at follow-up as appropriate. Diet Education Needs Assessment: Diet education not indicated. Nutrition Care Level: low Signed: Angélica Garza, RD, LD
[2019-01-22 15:39] LABS: CREATINE KINASE 209 IU/L (30-200)
[2019-01-22] MEDS: CHOLECALCIFEROL 1,000 UNIT TAB PO SCH (17:00)
[2019-01-22] MEDS ORDERED: NON-FORMULARY MEDICATION ([Eliquis] 5 MG) PO SCH (17:00)
--- NOTE | 2019-01-22 17:17 | History and Physical ---
CHIEF COMPLAINT: Cough and congestion. HISTORY OF PRESENT ILLNESS: A 78-year-old male patient with history of atrial fibrillation, follows with Dr. Zaldivar, came to the emergency room with cough and congestion. The patient's chest x-ray showed patchy airspace opacity right infrahilar region, predominantly seen in the lateral view. No evidence of pulmonary edema. The patient admitted for pneumonia. PAST MEDICAL HISTORY: Atrial fibrillation, hypertension, osteoarthritis, coronary artery disease, constipation, and BPH. PAST SURGICAL HISTORY: Inguinal hernia repair, left eyelid surgery, mitral valve repair. SOCIAL HISTORY: No history of smoking or alcohol use. MEDICATIONS: Levothyroxine 50 mcg daily, polyethylene glycol, metoprolol succinate 25 mg twice daily, [place]-3 fatty acids, Pradaxa 300 mg twice a day, tamsulosin 0.4 mg daily, Cholecalciferol, and Augmentin. PHYSICAL EXAMINATION: VITAL SIGNS: Blood pressure is 120/77, pulse of 104, temperature 100.8, weight 190 pounds, height 6 feet 1 inch. HEENT: Normal. NECK: No JVD. LUNGS: Bilateral rhonchi present, worse on the right side. ABDOMEN: Soft. Bowel sounds normal. CVS: S1 and S2, regular. EXTREMITIES: Lower extremities, no edema. SKIN: Normal. LABORATORY DATA: CBC; white blood count 13.98. Chemistry; cardiac enzyme normal. BNP 162, BUN 14, creatinine 0.87. ASSESSMENT: Cough, congestion with right lower lobe pneumonia. PLAN: We will continue IV antibiotics. Resume home medications. Breathing treatment, oxygen and DC plan when stable. MD ILANA Smith/MODL /[id number]
[2019-01-22] MEDS: APIXABAN 5 MG TABLET PO SCH (17:25)
[2019-01-22] MEDS: METOPROLOL SUCCINATE 25 MG TAB XL PO SCH (17:26)
[2019-01-22] MEDS: OMEGA 3 POLYUNSAT FATTY ACIDS 1000 MG SOFTGEL PO SCH (17:26)
--- NOTE | 2019-01-22 17:27 | NUR ---
PT UP IN BED NO DISTRESS NTOED,DENIES PAIN ,O2 3L NC
--- NOTE | 2019-01-22 19:05 | NUR ---
Bedside rounds completed with morning nurse. Pt alert and orient to name. Coming from bathroom with IV pole. Denies pain at this time. Call rivas within reach. Bed low and locked. Will continue to monitor.
[2019-01-22] MEDS: TAMSULOSIN HCL 0.4 MG CAP PO SCH (21:00)
[2019-01-23] VITALS (8 sets, daily range): BP systolic 115–138; BP diastolic 62–83
[2019-01-23] MEDS: ALBUTEROL SULF 0.083% NEB SOLN 3 ML NEB NEB SCH ×7 (00:05→20:11)
[2019-01-23] MEDS: IPRATROPIUM BROMIDE 0.02% 2.5 ML NEB NEB SCH ×4 (00:05→20:11)
--- NOTE | 2019-01-23 02:00 | NUR ---
Bedside rounds completed with Dr. Savage. Discussed treatment plan with Pt. Pt verbalized understanding. Dr. Savage ordered morning CXR, Solu-Medrol, and multiple morning lab work. Call rivas within reach.
--- NOTE | 2019-01-23 05:15 | Consultation ---
DATE OF CONSULTATION: 01/22/2019 Pulmonary Medicine Consult PRIMARY CARE DOCTOR: Oj Zaldivar MD CHIEF COMPLAINT: Pneumonia. HISTORY OF PRESENT ILLNESS: Mr. Barrera is a [facility] 78-year-old gentleman with pneumonia. The patient was reporting recent cough. He was having some subjective fevers. He had some chest congestion. The patient went onset of symptoms for about four days. The patient came to the emergency room. In the emergency room, the patient had a chest x-ray consistent with pneumonia. Chest x-ray with mild right pneumonitis. The patient denies history of asthma. He has allergies and many allergies as tested by branch specialist. No previous COPD diagnosed. He has no significant GERD. He is on no chronic pulmonary inhalers. He has never been on home oxygen. He had an 12/2017, CT chest with bilateral nodular consolidative pneumonia. PAST MEDICAL HISTORY: Hypertension, atrial fibrillation, hypothyroidism, BPH, coronary artery disease, constipation, eyelid surgery, chronic allergies, mitral valve repair, cataract repair, hernia surgery. ALLERGIES: VERAPAMIL, CODEINE STATED. SOCIAL HISTORY: No smoking. No drinking. No drugs. 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 Never had any high-level exposures. FAMILY HISTORY: Noncontributory to this. REVIEW OF SYSTEMS: CONSTITUTIONAL: The patient generally without weight changes. OPHTHALMOLOGIC: No double vision. ENT: No mouth ulcers. ENDOCRINE: Diabetes cited. PULMONARY: No hemoptysis. CARDIAC: No recent CA. GI: No constipation. : No blood in urine. MUSCULOSKELETAL: There is mild arthritis only. DERMATOLOGIC: No rashes. NEUROLOGIC: No seizures. OBJECTIVE: VITAL SIGNS: Afebrile, vital signs noted and reviewed per the chart record. GENERAL: In no acute distress, alert and calm. HEENT: Normocephalic, atraumatic. NECK: Supple. Throat midline. LUNGS: Bilateral air entry, a few rhonchi, mild wheezing. CARDIOVASCULAR: S1, S2. No murmurs, rubs, or gallops. ABDOMEN: Soft, nontender. EXTREMITIES: No clubbing. No cyanosis. There is no edema. INTEGUMENT: No rash. No purpura. LABORATORY DATA: Labs reviewed per the chart record. 14 white count, 47 hematocrit, 132 platelets. 4.4 potassium, 14 BUN, 0.9 creatinine. BNP . Albumin is 4.0. Total protein 7.1. Total bilirubin is 2.8. Influenza assay negative. IMPRESSION AND PLAN: 1. Pneumonia, acute, treat for community-acquired pneumonia. 2. History of previous pneumonia. 3. Chronic intermittent allergies. 4. History of constipation. 5. History of thyroid disorder. 6. Atrial fibrillation. 7. Hypertension. 8. Coronary artery disease. Continue oxygen supplementation. I agree with antibiotics for pneumonia. The patient will get labs sent off to check for immunocompetency as part of screening. The patient in the meantime will get CAT scan and I will discuss timing with team. Thank you very much, Dr. Zaldivar and Dr. Guerra for allowing me a chance to participate in the care of Mr. Barrera. Do not hesitate to contact me if I can help in any way. MD PJ Hernandez/DAMIAN /[id number]
[2019-01-23] MEDS ORDERED: LEVOTHYROXINE SODIUM 50 MCG TAB PO SCH (06:00)
[2019-01-23 06:16] LABS: BASOPHILS % 0.2 % (0.0-1.0); EOSINOPHILS # (AUTO) 0.1 (0.0-0.4); EOSINOPHILS % 1.9 % (0.0-6.0); HEMATOCRIT 37.1 % (38.2-49.6); HEMOGLOBIN 12.4 g/dL (14.0-18.0); LYMPHOCYTES # (AUTO) 0.5 (1.0-3.2); LYMPHOCYTES % 8.3 % (18.0-39.1); MEAN CORPUSCULAR HEMOGLOBIN 31.3 pg (28-32); MEAN CORPUSCULAR HGB CONC 33.4 g/dL (31-35); MEAN CORPUSCULAR VOLUME 93.7 fL (81-99); MONOCYTES # (AUTO) 0.5 (0.2-0.8); MONOCYTES % 9.6 % (4.4-11.3); NEUTROPHILS # (AUTO) 4.3 (2.1-6.9); NEUTROPHILS % 79.6 % (38.7-80.0); PLATELET COUNT 99 x10e3/uL (140-360); RED BLOOD COUNT 3.96 x10e6/uL (4.3-5.7); RED CELL DISTRIBUTION WIDTH 13.4 % (11.7-14.4)
[2019-01-23] MEDS: LEVOTHYROXINE SODIUM 50 MCG TAB PO SCH (06:30)
--- NOTE | 2019-01-23 06:40 | NUR ---
Pt resting quietly in bed lying supine HOB 60 degrees side. Denies pain at this time. No distress noted. Call rivas within reach.
--- NOTE | 2019-01-23 07:25 | NUR ---
PT UP IN BED DENIES PAIN ,O2 2L NC IN PLACE,NO DISTRES NTOED
--- NOTE | 2019-01-23 07:31 | Diagnostic Imaging Report ---
A single frontal view of the chest. HISTORY: pneumonia COMPARISON: Chest radiograph January 21, 2019 DISCUSSION: Portable technique, limits sensitivity of the exam. Soft tissue attenuation partially limits sensitivity of the exam. Tubes/Lines: None Lungs and pleura: Diffusely increased interstitial and patchy airspace opacities. Mild left basilar and right infrahilar atelectasis. Mild blunting of the left costophrenic angle. Heart and mediastinum: The cardiac silhouette and central pulmonary vasculature are enlarged. Bones and soft tissues: Appear unremarkable, given this limited exam. IMPRESSION: 1. Findings are most suggestive of volume overload resulting in central pulmonary vascular congestion and moderate pulmonary edema. 2. Multifocal pneumonia is a consideration in the appropriate setting. 3. Mild left basilar atelectasis and trace left effusion. Signed by: Dr. Franklyn Win D.O., M.M.M. on 01/23/2019 7:28 AM
[2019-01-23] MEDS: APIXABAN 5 MG TABLET PO SCH ×2 (08:43→17:37)
[2019-01-23] MEDS: LEVOFLOXACIN 500MG/D5W 100ML 100 ML IV SCH (08:43)
[2019-01-23] MEDS: METHYLPREDNISOLONE SOD SUCC 125 MG/2ML VIAL IV SCH ×2 (08:43→20:43)
[2019-01-23] MEDS: OMEGA 3 POLYUNSAT FATTY ACIDS 1000 MG SOFTGEL PO SCH ×2 (08:44→17:37)
[2019-01-23] MEDS: CHOLECALCIFEROL 1,000 UNIT TAB PO SCH (08:44)
[2019-01-23 11:33] LABS: EOSINOPHILS % (MANUAL) 4 % (0-7); LYMPHOCYTES % (MANUAL) 6 % (19-48); MONOCYTES % (MANUAL) 12 % (3.4-9.0); NEUTROPHILS % (MANUAL) 78 % (40-74); PLATELET ESTIMATE SLIGHTLY DECREASED; RBC MORPHOLOGY COMMENT NORMAL
[2019-01-23 11:34] LABS: PLATELET MORPHOLOGY COMMENT NORMAL
--- NOTE | 2019-01-23 12:30 | NUR ---
PT UP IN ROOM AMBULATING ,DENIES SOB,
[2019-01-23] MEDS: CEFTRIAXONE SOD 1 GM/NS 50 ML 50 ML IV SCH (12:45)
[2019-01-23] MEDS: SODIUM CHLORIDE 0.9% 1000ML 1,000 ML IV SCH (14:00)
--- NOTE | 2019-01-23 14:41 | Diagnostic Imaging Report ---
EXAM: CT Chest WITH contrast INDICATION: Recurrent pneumonia, streaky hemoptysis. COMPARISON: CT chest without contrast 01/02/2018, chest radiograph 01/23/2019. TECHNIQUE: Chest was scanned utilizing a multidetector helical scanner from the lung apex through the level of the adrenal glands after administration of IV contrast. Coronal and sagittal reformations were obtained. Routine protocol was performed. IV CONTRAST: 100 mL of Isovue 370 RADIATION DOSE: Total DLP: 482.7 mGy*cm Dose modulation, iterative reconstruction, and/or weight based adjustment of the mA/kV was utilized to reduce the radiation dose to as low as reasonably achievable. COMPLICATIONS: None FINDINGS: LINES/ TUBES: None. LUNGS AND AIRWAYS: The central airways are patent. There is diffuse bronchial wall thickening, most pronounced in the bilateral lower lobes. There are multifocal groundglass opacities, most confluent in the bilateral lower lobes and to a lesser extent in the dependent bilateral upper lobes. Patchy consolidative opacity in the bilateral lower lobes. Mild interlobular septal thickening in the lower lobes. Diffuse opacity limits evaluation for pulmonary nodule. Bilateral lower lobe calcified granulomas. Biapical pleural-parenchymal opacity, consistent with prior granulomatous disease. PLEURA: Trace left greater than right pleural effusions. HEART AND MEDIASTINUM: The thyroid gland is normal. Mildly enlarged mediastinal lymph nodes, for example a left paratracheal lymph node measuring up to 1.2 cm on series 2, image 49, likely reactive. Scattered partially calcified mediastinal lymph nodes, representing sequela of granulomatous disease. Mild cardiomegaly. No evidence of pericardial effusion. Status post mitral valve replacement. Minimal coronary atherosclerosis. Scattered atherosclerotic calcifications of the thoracic aorta and branch vessels. UPPER ABDOMEN: Limited contrast-enhanced views of the upper abdomen. Small hiatal hernia. Partially seen cyst within the right hepatic lobe. BONES/SOFT TISSUES: Degenerative changes of the visualized spine. No suspicious lytic or blastic lesions. No acute osseous abnormality. IMPRESSION: Findings of multifocal pneumonia, with likely superimposed mild pulmonary interstitial edema in the lower lobes. Trace left greater than right pleural effusions. Recommend follow-up chest CT in 3 months to assess for resolution. Signed by: Dr. Reshma Harris MD on 01/23/2019 2:38 PM
[2019-01-23] MEDS ORDERED: SODIUM CHLORIDE 0.9% 50ML 50 ML ONE (15:09)
[2019-01-23] MEDS ORDERED: IOPAMIDOL 370 MG/ML 200 ML INFUS..BTL INJ ONE (15:09)
--- NOTE | 2019-01-23 16:06 | Progress Note ---
DATE: 01/23/2019 Pulmonary Medicine Progress Note SUBJECTIVE: Mr. Barrera was seen and examined at bedside. He continues to have some coughing. He is expectorating more. The patient is having a few streaks of blood coming out. One bowel movement yesterday. 96% saturation on room air. REVIEW OF SYSTEMS: No double vision, no headaches. OBJECTIVE: VITAL SIGNS: Afebrile, vital signs noted and reviewed per the chart record. GENERAL: In no acute distress, alert and calm. HEENT: Normocephalic, atraumatic. NECK: Supple. Throat midline. LUNGS: Bilateral air entry, mild rhonchi heard. CARDIOVASCULAR: S1, S2. No murmurs, rubs, or gallops. ABDOMEN: Soft, nontender. EXTREMITIES: No clubbing. No cyanosis. There is no large edema. INTEGUMENT: No rash or purpura. IMPRESSION AND PLAN: 1. Pneumonia. 2. Recent other pneumonia. 3. History of chronic allergies. 4. Denies gastroesophageal reflux disease, denies asthma, denies chronic obstructive pulmonary disease. 5. Atrial fibrillation, on blood thinners. Get a CT chest with contrast. While this is more likely infectious pneumonia given the secretions and the subjective fevers, we cannot rule out conditions of his alveolar hemorrhage. If this appears to be chronic pneumonia, we tentatively can consider bronchoscopy as early as tomorrow. We will continue antibiotics at this time. Wean steroids down. A couple of doses were given for the bronchitic component. Continue bronchodilators. MD PJ Hernandez/DAMIAN /[id number]
[2019-01-23] MEDS: METOPROLOL SUCCINATE 25 MG TAB XL PO SCH (17:00)
--- NOTE | 2019-01-23 18:17 | NUR ---
PT UP IN BED DENIES PAIN ,
--- NOTE | 2019-01-23 19:30 | NUR ---
Received patient in report. Patient resting in bed at this time. A&Ox3. Lung sounds clear. Bowel sounds active. Skin in tact. No edema noted. No pain reported. NO S&S of distress at this time. R AC 20g IV asymptomatic, intact, and patent. Bed locked in lowest position, side rails up x2, call light in reach.
[2019-01-23] MEDS: TAMSULOSIN HCL 0.4 MG CAP PO SCH (20:43)
--- NOTE | 2019-01-23 23:20 | NUR ---
Patient ambulating up and down hallway at this time. Gait noted to be steady.
[2019-01-24] VITALS (8 sets, daily range): BP systolic 110–131; BP diastolic 59–85
[2019-01-24] MEDS: IPRATROPIUM BROMIDE 0.02% 2.5 ML NEB NEB SCH ×4 (00:24→20:26)
[2019-01-24] MEDS: ALBUTEROL SULF 0.083% NEB SOLN 3 ML NEB NEB SCH ×6 (00:45→20:26)
[2019-01-24] MEDS: SODIUM CHLORIDE 0.9% 1000ML 1,000 ML IV SCH ×2 (04:21→22:15)
[2019-01-24] MEDS: LEVOTHYROXINE SODIUM 50 MCG TAB PO SCH (05:46)
--- NOTE | 2019-01-24 07:14 | NUR ---
PATIENT IN BED RESTING WITH NO RESPIRATORY DISTRESS. IV FLUID INFUSING ORDERED. DENIED PAIN AT THIS TIME. BED IN LOWER POSITION, CALL LIGHT AT REACH.
[2019-01-24] MEDS: LEVOFLOXACIN 500MG/D5W 100ML 100 ML IV SCH (09:06)
[2019-01-24] MEDS: OMEGA 3 POLYUNSAT FATTY ACIDS 1000 MG SOFTGEL PO SCH ×2 (09:06→17:31)
[2019-01-24] MEDS: APIXABAN 5 MG TABLET PO SCH ×2 (09:06→17:31)
[2019-01-24] MEDS: CHOLECALCIFEROL 1,000 UNIT TAB PO SCH (09:06)
--- NOTE | 2019-01-24 11:40 | NUR ---
PATIENT AMBULATING IN HALLWAY WITH FAMILY MEMBER, NO COMPLAIN VOICED. WILL CONTINUE TO MONITOR.
[2019-01-24] MEDS: CEFTRIAXONE SOD 1 GM/NS 50 ML 50 ML IV SCH (12:21)
--- NOTE | 2019-01-24 15:02 | NUR ---
PATIENT ASSISTED TO THE RESTROOM AND BACK TO BED. SITTING AT BED SIDE TALKING TO FAMILY MEMBER VISITING. CALL LIGHT AT REACH.
[2019-01-24] MEDS: METOPROLOL SUCCINATE 25 MG TAB XL PO SCH (17:31)
--- NOTE | 2019-01-24 20:23 | NUR ---
RECEIVED PT IN BED AOX3 .RESPIRATIONS ARE EVEN AND UNLABORED .DENIES PAIN CALL LIGHT WITH IN REACH .CONTINUE TO MONITOR
[2019-01-24] MEDS: TAMSULOSIN HCL 0.4 MG CAP PO SCH (21:00)
[2019-01-25 00:10] VITALS: BP 146/69
[2019-01-25] MEDS: IPRATROPIUM BROMIDE 0.02% 2.5 ML NEB NEB SCH ×3 (00:45→11:00)
--- NOTE | 2019-01-25 02:55 | Progress Note ---
DATE: 01/24/2019 Pulmonary Medicine Progress Note SUBJECTIVE: Mr. Barrera was seen and examined at bedside. I reviewed the CT chest in detail. The patient with CT lung infiltrate. However, the lung infiltrates are in a mildly different pattern than before. Previously, the upper middle lobe infiltrates have totally resolved. There are bilateral lower lobe infiltrates active now. I discussed with the patient including risks, benefits, alternatives, and it is reasonable to repeat a CAT scan and defer early bronchoscopy. He does agree to this modality of treatment. The patient with deferred bronchoscopy and for now he continues to eat well and feel slightly better. He is coughing up secretions. REVIEW OF SYSTEMS: No headaches. No bleeding. OBJECTIVE: VITAL SIGNS: Afebrile, vital signs noted, reviewed per the chart record. GENERAL: In no acute distress. Alert and calm. HEENT: Normocephalic, atraumatic. NECK: Supple. Throat midline. LUNGS: Bilateral air entry, few rhonchi. CARDIOVASCULAR: S1, S2. No murmur. ABDOMEN: Soft, nontender. EXTREMITIES: No clubbing. No cyanosis. There is no edema. INTEGUMENT: No rash or purpura. IMPRESSION/PLAN: 1. Acute pneumonia. 2. Possible gastroesophageal reflux disease. 3. History of previous pneumonia. 4. History of mild allergies in the past. 5. Weakness. Continue current treatment. Continue antibiotics. Repeat CT chest in about 3 months' time frame. Continue close followup. Bronchodilators continue. We will follow along closely. MD PJ Hernandez/DAMIAN /[id number]
[2019-01-25 04:05] VITALS: BP 125/72
[2019-01-25] MEDS: ALBUTEROL SULF 0.083% NEB SOLN 3 ML NEB NEB SCH ×3 (06:30→15:00)
[2019-01-25] MEDS: LEVOTHYROXINE SODIUM 50 MCG TAB PO SCH (06:38)
--- NOTE | 2019-01-25 07:08 | NUR ---
PT RESTED DURING THE NIGHT .DENIES PAIN CALL LIGHT WITH IN REACH .CONTINUE TO MONITOR .BEDSIDE REPORT GIVEN TO THE ONCOMING NURSE
[2019-01-25 07:15] VITALS: BP 128/70
--- NOTE | 2019-01-25 07:15 | NUR ---
PATIENT IN BED RESTING WITH NO S/S OF DISTRESS. DENIED PAIN AT THIS TIME. BED IN LOWER POSITION, CALL LIGHT AT REACH.
[2019-01-25 08:09] VITALS: BP 128/70
[2019-01-25] MEDS: APIXABAN 5 MG TABLET PO SCH ×2 (09:36→17:08)
[2019-01-25] MEDS: CHOLECALCIFEROL 1,000 UNIT TAB PO SCH (09:36)
[2019-01-25] MEDS: LEVOFLOXACIN 500MG/D5W 100ML 100 ML IV SCH (09:36)
[2019-01-25] MEDS: OMEGA 3 POLYUNSAT FATTY ACIDS 1000 MG SOFTGEL PO SCH ×2 (09:36→17:08)
[2019-01-25 11:02] LABS: HIV 1&2 AB SCREEN NON-REACTIVE (NONREACTIVE)
--- NOTE | 2019-01-25 11:06 | NUR ---
PATIENT AMBULATING IN HALLWAY WITH , NO RESPIRATORY DISTRESS OBSERVED. WILL MONITOR.
[2019-01-25 11:50] VITALS: BP 130/86
[2019-01-25] MEDS ORDERED: PROAIR HFA INH8.5 GM IH (13:01)
[2019-01-25] MEDS ORDERED: MUCINEX DM ER1 EACH PO (13:01)
[2019-01-25] MEDS ORDERED: LEVOFLOXACIN500 MG PO (13:01)
[2019-01-25] MEDS: CEFTRIAXONE SOD 1 GM/NS 50 ML 50 ML IV SCH (13:30)
--- NOTE | 2019-01-25 15:00 | NUR ---
CALL PLACED TO MD REGARDING DISCHARGE, MESSAGE LEFT TO MANPOWER DEVELOPMENT MANAGER. AWAITING CALL BACK.
[2019-01-25 16:02] VITALS: BP 121/66
--- NOTE | 2019-01-25 17:00 | NUR ---
CALL BACK RECEIVED FROM DR LINDSAY, ORDER RECEIVED TO DISCHARGE PATIENT HOME. PATIENT NOTIFIED.
[2019-01-25] MEDS: METOPROLOL SUCCINATE 25 MG TAB XL PO SCH (17:09)
--- NOTE | 2019-01-25 18:00 | NUR ---
PATIENT DISCHARGED HOME. DISCHARGE INSTRUCTIONS, PRESCRIPTIONS, AND FOLLOW UP GIVEN TO PATIENT, HE VERBALIZED UNDERSTANDING. IV TO RIGHT AC REMOVED WITH TIP INTACT. ALL PERSONAL ITEMS TAKEN WITH PATIENT. REFUSED WHEEL CHAIR, BUT WAS ACCOMPANY BY HOSPITAL STAFF TO FRONT LOBBY IN STABLE CONDITION.
--- NOTE | 2019-01-26 02:12 | Progress Note ---
DATE: Internal Medicine Progress Note SUBJECTIVE: Mr. Barrera was seen and examined at bedside. He continues to have steady progress. The patient with slightest cough. Continues with better eating. He is mobilizing. REVIEW OF SYSTEMS: No headaches, no bleeding. OBJECTIVE: VITAL SIGNS: Afebrile, vital signs noted per the chart record. GENERAL: In no acute distress. Alert and calm. HEENT: Normocephalic, atraumatic. NECK: Supple. Throat midline. LUNGS: Bilateral air entry, rare rhonchi. CARDIOVASCULAR: S1, S2. No murmurs, rubs, or gallops. ABDOMEN: Soft, nontender. EXTREMITIES: No clubbing, no cyanosis. There is no edema. INTEGUMENT: No rash or purpura. LABORATORY DATA: HIV was negative. CD4 count was low 116. IgG level was low. IMPRESSION AND PLAN: 1. Immunosuppressed state, hypogammaglobulinemia. 2. Immunosuppressed state, low T-cell. 3. Recurrence of pneumonia. 4. Allergies. Await IgE level. Await JAMES level. The patient can be discharged on antibiotics. Continue bronchodilator trial. He needs to follow up GI to discuss with Dr. Soriano. We will communicate with the PCP and I will also follow him in the clinic. MD PJ Hernandez/DAMIAN /[id number]
--- NOTE | 2019-01-27 09:52 | Discharge Summary ---
HOSPITAL COURSE: A 78-year-old male patient, admitted with a cough and wheezing, diagnosed with bilateral pneumonia. The patient also had some hemoptysis. In spite of antibiotic treatment, he had persistent bilateral crackles and wheezing. He was seen by check inspector and had a CT of the chest, which shows multifocal pneumonia, superimposed mild interstitial edema. There were mildly enlarged mediastinal lymph nodes, left paratracheal lymph node measuring 1.[address] in 3 months. 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 HIV testing was normal. His CD4 cell count was low at 114. The patient will be discharged home today with prescription for Levaquin and inhaler. Advised to follow up with Dr. Zaldivar, PCP in a week and follow up CT chest in 3 months. DISCHARGE DIAGNOSES: 1. Bilateral pneumonia. 2. Mediastinal adenopathy. 3. Low IgG. DISCHARGE MEDICATIONS: Reconciled. DIET: Low salt. ACTIVITY: As tolerated. MD ILANA Smith/MODL /[id number]
== END 2019-01-25 17:55 | disposition home or self-care (01) | DRG 871 ==
LOC: ER 12:29 → ERHOLD 14:35 → MED/SURG3 15:50
PROVIDERS: ADMIT Internal Medicine; ATTEND Internal Medicine
DX: A41.9 Sepsis, unspecified organism (principal); J18.9 Pneumonia, unspecified organism; D80.1 Nonfamilial hypogammaglobulinemia; I48.91 Unspecified atrial fibrillation; Z79.01 Long term (current) use of anticoagulants; K21.9 Gastro-esophageal reflux disease without esophagitis; I25.10 Atherosclerotic heart disease of native coronary artery without angina pectoris; Z87.01 Personal history of pneumonia (recurrent); J30.2 Other seasonal allergic rhinitis; N40.0 Benign prostatic hyperplasia without lower urinary tract symptoms; M19.90 Unspecified osteoarthritis, unspecified site
CPT/HCPCS: 36415; 71045; 71046; 71260; 80053; 81001; 82550; 82553; 82784; 82785; 83605; 83735; 83880; 84443; 84484; 85025; 85610; 85730; 86361; 87040; 87086; 87390; 87400; 93005; 94640; 99284; G0433; G0435; J0696; J1956; J2930; J7030; Q9967

== ENCOUNTER 2019-05-18 07:54 | Outpatient (RCR) | payer BC, MEDICARE ==
[~2019-05-18 07:54] MED LIST changes: +ELIQUIS PO; +LEVOFLOXACIN500 MG PO; +MUCINEX DM ER1 EACH PO; +PROAIR HFA INH8.5 GM IH
== END 2019-05-19 ==
LOC: PT 07:54
PROVIDERS: ATTEND Internal Medicine
DX: S16.1XXA Strain of muscle, fascia and tendon at neck level, initial encounter (principal); M62.838 Other muscle spasm; M62.81 Muscle weakness (generalized)

== ENCOUNTER 2019-06-14 07:00 | Outpatient (RCR) | payer BC, MEDICARE | END 2019-06-18 | LOC: PT 07:00 | PROVIDERS: ATTEND Internal Medicine | DX: S13.4XXA Sprain of ligaments of cervical spine, initial encounter (principal); M62.830 Muscle spasm of back ==

== ENCOUNTER 2019-06-28 07:00 | Outpatient (RCR) | payer BC, MEDICARE | END 2019-07-19 | LOC: PT 07:00 | PROVIDERS: ATTEND Internal Medicine | DX: S16.1XXD Strain of muscle, fascia and tendon at neck level, subsequent encounter (principal); M62.838 Other muscle spasm; M62.81 Muscle weakness (generalized) ==

== ENCOUNTER 2019-07-22 09:27 | Emergency (ER) | payer BC, MEDICARE ==
[~2019-07-22] VITALS: Ht 185.4 cm; Wt 92.1 kg
[2019-07-22] MEDS ORDERED: BACTRIM DS TAB1 EACH PO (10:09)
[2019-07-22] MEDS ORDERED: ULTRAM50 MG PO (10:11)
[2019-07-22 10:13] VITALS: BP 132/79
== END 2019-07-22 10:16 | disposition home or self-care (01) ==
LOC: ER 09:27
DX: L03.221 Cellulitis of neck (principal); I10 Essential (primary) hypertension; I25.10 Atherosclerotic heart disease of native coronary artery without angina pectoris; I48.91 Unspecified atrial fibrillation; E03.9 Hypothyroidism, unspecified
CPT/HCPCS: 99282

== ENCOUNTER 2019-08-17 07:00 | Outpatient (RCR) | payer BC, MEDICARE ==
[~2019-08-17 07:00] MED LIST changes: +BACTRIM DS TAB1 EACH PO; +ULTRAM50 MG PO
== END 2019-08-18 ==
LOC: PT 07:00
PROVIDERS: ATTEND Internal Medicine
DX: S13.4XXA Sprain of ligaments of cervical spine, initial encounter (principal); M62.838 Other muscle spasm

== ENCOUNTER 2019-11-26 11:47 | Emergency (ER) | payer BC, MEDICARE ==
[~2019-11-26] VITALS: Ht 185.4 cm; Wt 92.1 kg
[2019-11-26] MEDS ORDERED: IBUPROFEN 600 MG TAB PO STA (11:53)
--- NOTE | 2019-11-26 13:44 | NUR ---
CALLED RADIOLOGY IN REGARDS TO READ DELAY. PER JACK FRAME TENDER, RADIOLOGIST IN PROCEDURES AND WILL READ ONCE FINISHED.
--- NOTE | 2019-11-26 14:05 | Diagnostic Imaging Report ---
TECHNIQUE: Frontal and lateral views of the chest. INDICATION: 79-year-old man with cough and fever. COMPARISON: Chest CT and chest radiograph 01/23/2019, chest radiograph 01/21/2019. FINDINGS: LINES/TUBES: None. LUNGS: The lungs are well inflated. Persistent linear airspace opacities in the left lung base. PLEURA: No pleural effusion or pneumothorax. HEART AND MEDIASTINUM: Borderline prominent cardiac silhouette. Unchanged prosthetic cardiac valve. Atherosclerotic calcifications in the thoracic aorta. SOFT TISSUES AND BONES: Unremarkable. IMPRESSION: No acute cardiopulmonary abnormalities. No significant change since 01/21/2019. Persistent linear left basilar opacities, likely atelectasis and/or scarring. Signed by: Luisito Knpap MD on 11/26/2019 2:02 PM
== END 2019-11-26 14:03 | disposition home or self-care (01) ==
LOC: ER 11:47
DX: R50.9 Fever, unspecified (principal); R05 Cough; J06.9 Acute upper respiratory infection, unspecified; J00 Acute nasopharyngitis [common cold]
CPT/HCPCS: 71046; 83518; 87070; 87400; 99283

== ENCOUNTER → 2021-01-16 | Outpatient (RCR) | payer BC, MEDICARE, OTHER | LOC: PT 07:03 | PROVIDERS: ATTEND Orthopaedic Surgery | DX: S16.1XXA Strain of muscle, fascia and tendon at neck level, initial encounter (principal) ==

== ENCOUNTER 2021-02-05 07:00 | Outpatient (RCR) | payer BC, MEDICARE, OTHER | END 2021-02-16 | LOC: PT 07:00 | PROVIDERS: ATTEND Orthopaedic Surgery | DX: S16.1XXA Strain of muscle, fascia and tendon at neck level, initial encounter (principal); M53.82 Other specified dorsopathies, cervical region; M62.81 Muscle weakness (generalized); R29.3 Abnormal posture ==

== ENCOUNTER 2021-02-22 09:42 | Emergency (ER) | payer BC, MEDICARE ==
[~2021-02-22] VITALS: Ht 185.4 cm; Wt 92.1 kg
== END 2021-02-22 10:13 | disposition home or self-care (01) ==
LOC: ER 10:13
DX: S39.012A Strain of muscle, fascia and tendon of lower back, initial encounter (principal); I10 Essential (primary) hypertension; I25.10 Atherosclerotic heart disease of native coronary artery without angina pectoris; I48.91 Unspecified atrial fibrillation; E03.9 Hypothyroidism, unspecified
CPT/HCPCS: 99283

== ENCOUNTER 2021-04-16 07:00 | Outpatient (RCR) | payer BC, MEDICARE | END 2021-04-18 | LOC: PT 07:00 | PROVIDERS: ATTEND Orthopaedic Surgery | DX: S16.1XXD Strain of muscle, fascia and tendon at neck level, subsequent encounter (principal); M53.82 Other specified dorsopathies, cervical region; M62.81 Muscle weakness (generalized); R29.3 Abnormal posture ==

== ENCOUNTER 2021-04-23 06:59 | Outpatient (RCR) | payer BC, MEDICARE | END 2021-05-19 | LOC: PT 06:59 | PROVIDERS: ATTEND Orthopaedic Surgery | DX: S16.1XXA Strain of muscle, fascia and tendon at neck level, initial encounter (principal) ==

== ENCOUNTER 2024-10-06 07:57 | Emergency (ER) | payer MEDICARE ==
[~2024-10-06] VITALS: Ht 180.3 cm; Wt 91.9 kg
[~2024-10-06 07:57] MED LIST changes: +BACITRACIN15 GM TOP; +CIPRO500 MG PO
[2024-10-06] MEDS ORDERED: MAGOX 400400 MG PO (08:25)
[2024-10-06] MEDS ORDERED: FINASTERIDE5 MG PO (08:25)
[2024-10-06 08:44] VITALS: PULSE 62; RESP 18; TEMP 97.4; O2SAT 96
[2024-10-06] MEDS ORDERED: BENZONATATE100 MG PO (08:55)
[2024-10-06] MEDS ORDERED: TAMIFLU75 MG PO (08:55)
[2024-10-06] MEDS ORDERED: AZITHROMYCIN250 MG PO (08:55)
== END 2024-10-06 09:04 | disposition home or self-care (01) ==
LOC: FSED 08:02
DX: R05.9 Cough, unspecified (principal); J10.1 Influenza due to other identified influenza virus with other respiratory manifestations; I10 Essential (primary) hypertension; I48.91 Unspecified atrial fibrillation; E03.9 Hypothyroidism, unspecified; I25.10 Atherosclerotic heart disease of native coronary artery without angina pectoris; Z11.52 Encounter for screening for COVID-19; Z95.810 Presence of automatic (implantable) cardiac defibrillator
CPT/HCPCS: 0223U; 71046; 83518; 87400; 87420; 99283

== ENCOUNTER 2025-03-17 07:03 | Emergency (ER) | payer MEDICARE ==
[~2025-03-17] VITALS: Ht 180.3 cm; Wt 91.6 kg
[~2025-03-17 07:03] MED LIST changes: +AZITHROMYCIN250 MG PO; +BENZONATATE100 MG PO; +FINASTERIDE5 MG PO; +MAGOX 400400 MG PO; +TAMIFLU75 MG PO
[2025-03-17 07:10] VITALS: PULSE 69; RESP 17; TEMP 98.4; O2SAT 100
[2025-03-17 08:14] LABS: CORONAVIRUS COVID-19 AG NEGATIVE (NEGATIVE); STREPTOCOCCUS GRP A ANTIGEN NEGATIVE (NEGATIVE)
== END 2025-03-17 09:00 | disposition home or self-care (01) ==
LOC: ER 07:14
DX: R05.9 Cough, unspecified (principal); J06.9 Acute upper respiratory infection, unspecified; I10 Essential (primary) hypertension; I48.91 Unspecified atrial fibrillation; E03.9 Hypothyroidism, unspecified; I25.10 Atherosclerotic heart disease of native coronary artery without angina pectoris; Z11.52 Encounter for screening for COVID-19; Z95.810 Presence of automatic (implantable) cardiac defibrillator; Z86.79 Personal history of other diseases of the circulatory system
CPT/HCPCS: 71046; 83518; 87070; 99283